=== PATIENT | male | born 1990 | race Caucasian/White ===

== ENCOUNTER 2017-03-03 21:32 | Emergency (ER) | payer OTHER ==
[~2017-03-03] VITALS: Ht 180.3 cm; Wt 90.3 kg
[2017-03-03 21:34] VITALS: BP 145/82
[2017-03-03] MEDS ORDERED: LIDOCAINE 1%, 20ML ONE (21:45)
== END 2017-03-03 22:08 | disposition home or self-care (01) ==
LOC: ED 22:02
DX: J34.0 Abscess, furuncle and carbuncle of nose (principal); L02.01 Cutaneous abscess of face
CPT/HCPCS: 99283